=== PATIENT | male | born 1970 | race Caucasian/White ===

== ENCOUNTER 2021-09-23 17:37 | Emergency (ER) | payer SELFPAY ==
[2021-09-23 17:38] VITALS: BP 143/82; PULSE 87; RESP 16; TEMP 36.8; O2SAT 98; BMI 29.2
--- NOTE | 2021-09-23 17:59 | US_ITS ---
PROCEDURE INFORMATION: Exam: US Scrotum and Artery or Vein of the Abdominal and/or Reproductive Organs, Limited Scrotum Exam date and time: 09/23/2021 6:09 PM Age: 51 years old Clinical indication: Inflammation; Scrotum pain; Additional info: Red, swollen painful left testicle TECHNIQUE: Imaging protocol: Real-time ultrasound of the scrotum. Real-time duplex ultrasound scan of the arterial or venous flow with reyes scale, color Doppler flow and spectral waveform analysis with image documentation. Limited Duplex exam focused of the scrotum. Duplex images required to evaluate for torsion and other vascular conditions. COMPARISON: No relevant prior studies available. FINDINGS: Right testicle: The right testicle has normal color Doppler waveforms. Left testicle: Normal. No mass. No torsion. Normal Duplex waveforms and color doppler. Epididymides: The left epididymis is enlarged, and hyperemic compatible with epididymitis. There is increased color Doppler waveforms involving the left hemiscrotum in/testicle likely reactive to left epididymitis. Anechoic cystic structure involving the left epididymal head measuring 6 mm in diameter. Scrotum: Small right-sided hydrocele. Moderate volume multi septated collection involving the left hemiscrotum. IMPRESSION: The left epididymis is enlarged, and hyperemic compatible with epididymitis. Moderate volume multi septated collection involving the left hemiscrotum.
--- NOTE | 2021-09-23 18:34 | [facility].EDUROGM ---
ED Disposition Clinical Impression: Epididymitis Disposition: Home, Self-Care Condition on Discharge: Good Additional Instructions: follow up Urology if not better, call for appt, return here for worsening condition Prescriptions: Doxycycline Hyclate [Doxycycline Hyclate 100mg Tablet] 100 mg PO BID #20 tab Transmission Status: Pending to [id number] Referrals: Cathy Lou [Primary Care Provider] - Hung Osborne MD [Staff Physician] - - Critical Care Critical Care Time: No Attestation: On 09/23/21, the high probability of a clinically significant, sudden or life threatening deterioration of the following system(s) required my full and direct attention, intervention and personal management. The time I documented below is in addition to time spent performing reported procedures but includes the following listed in this critical care notation. Medical Decision Making - Medical Records Medical records reviewed: Yes: I reviewed the patient's medical records. - Ole Inquiry Pt receiving controlled substance: No Vital Signs: 09/23/21 17:38 Temperature 98.2 F Temperature Source Oral Pulse Rate [Radial] 87 Respiratory Rate 16 Blood Pressure [Right Arm] 143/82 H Blood Pressure Mean [Right Arm] 102 Blood Pressure Position [Right Arm] Sitting 02 Sat by Pulse Oximetry 98 Oxygen Delivery Method Room Air Orders (Tests/Meds): ED MEDICATIONS Discontinued Medications Generic Name Dose Route Start Last Admin Trade Name Freq PRN Reason Stop Dose Admin Ceftriaxone Sodium 500 mg 09/23/21 18:35 Ceftriaxone 500mg Vial IM 09/23/21 18:36 ONCE ONE Doxycycline Hyclate 100 mg 09/23/21 18:37 Doxycycline Hycl 100 Mg Tablet PO 09/23/21 18:38 ONCE ONE Lidocaine HCl 0 ml 09/23/21 18:35 Lidocaine 1% 5ml Pf Vial IM 09/23/21 18:36 ONCE ONE ORDERS Category Date Time Status Urinalysis and Microscopic Stat Lab 09/23/21 18:01 Ordered GC Culture Only Stat Micro 09/23/21 18:38 Ordered US Testicular Stat Ultrasound 09/23/21 17:59 Ordered Male Urogenital HPI - General Chief complaint: Urogenital-Male Stated complaint: swollen L TESTICLE Time Seen by Provider: 09/23/21 18:34 Mode of Arrival: Ambulatory Limitations: No Limitations Description of Symptoms (Recalled from ER Triage Doc. by RN): TO ED PER [employer] PT STATES WEDNESDAY HAD SEXUAL INTERCOURSE WITH WOKE UP WEDNESDAY WITH SWELLING TO LT TESTICLE THAT IS GETTING PROGRESSIVELY WORSE. C/O BURNING WITH URINATION. DENIES ANY FEVER, CHILLS, NAUSEA, VOMITING. C/O PAIN 08/21 - History of Present Illness HPI Narrative: left testicle pain and swelling 4 days, no injury Onset (ago): day(s) Duration: constant Location: left testicle Severity: moderate Quality: dull Relieving factors: none Exacerbating factors: palpation Reports: denies other symptoms - Related Data Sexually active: Yes Previous Rx's Medication Instructions Recorded Doxycycline Hyclate [Doxycycline 100 mg PO BID #20 tab 09/23/21 Hyclate 100mg Tablet] Allergies Allergy/AdvReac Type Severity Reaction Status Date / Time No Known Allergies Allergy Verified 09/23/21 17:59 [facility] History - Hepatitis A Screen Drug use history?: No High risk sexual behaviors?: No History of sexually transmitted infection?: No Currently employed?: No Childcare worker?: No Do you have indoor plumbing?: Yes Do you have electricity?: Yes Attestation statement:: This patient has been screened for Hepatitis A risk factors. ROS Obtained: Yes All systems reviewed & no additional complaints Physical Exam - General General appearance: alert, in no apparent distress - Respiratory Respiratory exam: Absent: respiratory distress, wheezes, stridor - Cardiovascular Cardiovascular exam: Present: regular rate. Absent: bradycardia, tachycardia - Abdominal Exam Abdominal exam: Present: soft. Absent: distention, tenderness - ex
[2021-09-23 18:59] LABS: Microscopic, Urine URINE MICROSCOPIC (MICROSCOPIC)
[2021-09-23 19:01] LABS: Appearance,Urine CLEAR (Clear); Bilirubin,Urine Negative (Negative); Blood, Urine 3+ (Negative); Color,Urine YELLOW (Yellow); Glucose,Urine (UA) Negative (Negative); Ketones,Urine Negative (Negative); Leukocyte Esterase,Urine 3+ (Negative); Nitrate,Urine POSITIVE (Negative); Protein,Urine 1+ (Negative); Specific Gravity, Urine 1.015 (1.005-1.030); Urobilinogen,Urine 0.2 EU/dl (0.2)
[2021-09-23 19:19] VITALS: BP 132/80; PULSE 86; RESP 20; TEMP 37.1; O2SAT 98
[2021-09-23 19:38] LABS: Bacteria,Urine 1+ /lpf; WBC,Urine 50-100 #/hpf (0-3)
[2021-09-25 22:08] LABS: Neisseria gonorrhoeae, NAA Negative (Negative)
== END 2021-09-23 19:21 | disposition home or self-care (01) ==
PROVIDERS: Emergency Provider Emergency Medicine; PCP Family Medicine
DX: N45.1 Epididymitis (principal)
CPT/HCPCS: 76870; 81001; 87086; 87088; 87186; 87491; 87591; 96372; 99284; J0696